=== PATIENT | male | born 1945 | race Caucasian/White ===

== ENCOUNTER → 2016-06-03 | Outpatient (CLI) | payer MEDICARE, OTHER ==
[~2016-06-03] MED LIST: AMBIEN10 MG PO; FLOMAX0.4 MG PO; PRILOSEC20 MG PO; PRINIVIL20 MG PO; PROSCAR5 MG PO; SYNTHROID50 MCG PO; ZOCOR20 MG PO
== END | disposition short-term general hospital (02) ==
LOC: CLUROL 11:13
DX: Z08 Encounter for follow-up examination after completed treatment for malignant neoplasm (principal); Z85.46 Personal history of malignant neoplasm of prostate; Z90.79 Acquired absence of other genital organ(s)